=== PATIENT | male | born 1990 | race Caucasian/White ===

== ENCOUNTER 2018-04-23 10:14 | Emergency (ER) | payer MEDICAID ==
[~2018-04-23] VITALS: Ht 165.1 cm; Wt 73.0 kg
[2018-04-23] MEDS ORDERED: SODIUM CHLORIDE 0.9% 1,000 ML IV ONE (10:45)
[2018-04-23] MEDS ORDERED: MORPHINE SULFATE 2 MG/ML CPJ (NOT FOR IM USE) IV ONE (10:45)
[2018-04-23] MEDS ORDERED: ONDANSETRON HCL 4MG/2ML VIAL IV ONE (10:45)
[2018-04-23 10:50] LABS: HEMATOCRIT. 44.2 % (42.0-52.0); HEMOGLOBIN. 14.9 g/dL (14.0-18.0); MEAN CORPUSCULAR HEMOGLOBIN 27.8 pg (28.0-32.0); MEAN CORPUSCULAR VOLUME 82.7 fL (80.0-94.0); MEAN PLATELET VOLUME 7.6 fl (7.4-10.4); PLATELET 191 x1000/uL (130-400); RED BLOOD CELL COUNT 5.35 mill/uL (4.7-6.1); RED CELL DISTRIBUTION WIDTH 13.2 % (11.6-14.6)
[2018-04-23 10:56] LABS: CHLORIDE 103 mEq/L (98-107); PROTHROMBIN TIME 10.7 sec (9.4-11.6)
[2018-04-23 11:28] LABS: PLATELET ESTIMATE NORMAL
[2018-04-23 12:57] LABS: CLARITY URINE CLEAR (CLEAR); COLOR URINE YELLOW (YELLOW); KETONES URINE NEGATIVE (NEGATIVE); LEUKOCYTE ESTERASE URINE NEGATIVE (NEGATIVE); NITRITE URINE NEGATIVE (NEGATIVE); OCCULT BLOOD URINE NEGATIVE (NEGATIVE); PH URINE >=9.0 (4.5-8.0); PROTEIN URINE NEGATIVE (NEGATIVE); SPECIFIC GRAVITY URINE 1.018 (1.005-1.030)
[2018-04-23 13:06] LABS: *AMPHETAMINES SCREEN URINE NEGATIVE (NEGATIVE); *BARBITURATES SCREEN URINE NEGATIVE (NEGATIVE); *BENZODIAZEPINES SCREEN URINE NEGATIVE (NEGATIVE); *COCAINE SCREEN URINE NEGATIVE (NEGATIVE); METHADONE URINE SCREEN NEGATIVE (NEGATIVE); OPIATES URINE SCREEN NEGATIVE (NEGATIVE)
[2018-04-23 13:07] LABS: CANNABINOID URINE SCREEN PRESUMTIVE POSITIVE (NEGATIVE); PHENCYCLIDINE URINE SCREEN NEGATIVE (NEGATIVE)
[2018-04-23 16:45] VITALS: BP 122/70
== END 2018-04-23 16:50 | disposition home or self-care (01) ==
LOC: ER 10:14
DX: S01.511A Laceration without foreign body of lip, initial encounter (principal); M54.9 Dorsalgia, unspecified; R51 Headache; D72.829 Elevated white blood cell count, unspecified; R73.9 Hyperglycemia, unspecified; E86.0 Dehydration; D72.810 Lymphocytopenia; D71 Functional disorders of polymorphonuclear neutrophils; R79.1 Abnormal coagulation profile; F12.10 Cannabis abuse, uncomplicated; Y08.89XA Assault by other specified means, initial encounter; Y93.89 Activity, other specified; Y92.89 Other specified places as the place of occurrence of the external cause; Y99.8 Other external cause status
CPT/HCPCS: 36415; 70450; 70486; 71045; 72070; 72100; 80053; 80305; 81003; 83036; 83880; 84484; 85025; 85610; 93005; 96361; 96374; 96375; 99285; J2270; J2405; J7030; Z7610

== ENCOUNTER 2018-05-22 16:37 | Emergency (ER) | payer MEDICAID ==
[~2018-05-22] VITALS: Ht 177.8 cm; Wt 91.0 kg
[2018-05-22 16:38] VITALS: BP 129/82
== END 2018-05-22 18:41 | disposition left against medical advice (07) ==
LOC: ER 16:37
DX: Z04.8 Encounter for examination and observation for other specified reasons (principal); Z53.21 Procedure and treatment not carried out due to patient leaving prior to being seen by health care provider

== ENCOUNTER 2021-01-04 11:22 | Emergency (ER) | payer BC, MEDICAID ==
[~2021-01-04] VITALS: Ht 162.6 cm; Wt 73.0 kg
[2021-01-04] MEDS ORDERED: KETOROLAC 30MG/ML VIAL IV STA (11:50)
[2021-01-04] MEDS ORDERED: SODIUM CHLORIDE 0.9% 1,000 ML IV ONE (12:00)
[2021-01-04 12:02] LABS: HEMATOCRIT. 46.8 % (42.0-52.0); HEMOGLOBIN. 15.8 g/dL (14.0-18.0); MEAN CORPUSCULAR HEMOGLOBIN 27.8 pg (28.0-32.0); MEAN CORPUSCULAR VOLUME 82.4 fL (80.0-94.0); MEAN PLATELET VOLUME 7.8 fl (7.4-10.4); PLATELET 231 x1000/uL (130-400); RED BLOOD CELL COUNT 5.68 mill/uL (4.7-6.1); RED CELL DISTRIBUTION WIDTH 14.3 % (11.6-14.6)
[2021-01-04 12:11] LABS: CHLORIDE 105 mEq/L (98-107)
[2021-01-04 12:52] LABS: PLATELET ESTIMATE NORMAL
[2021-01-04] MEDS ORDERED: AMOXICILLIN/POTASSIUM CLAVULANATE 875/125MG TAB PO ONE (13:15)
[2021-01-04] MEDS ORDERED: AMOX-424 MT (14:07)
[2021-01-04] MEDS ORDERED: IBUP-2029 MT (14:09)
[2021-01-04 14:20] VITALS: BP 104/63
== END 2021-01-04 14:34 | disposition home or self-care (01) ==
LOC: ER 12:17
DX: S02.85XA Fracture of orbit, unspecified, initial encounter for closed fracture (principal); S00.12XA Contusion of left eyelid and periocular area, initial encounter; F17.290 Nicotine dependence, other tobacco product, uncomplicated; Y04.8XXA Assault by other bodily force, initial encounter; Y93.39 Activity, other involving climbing, rappelling and jumping off; Y92.098 Other place in other non-institutional residence as the place of occurrence of the external cause; Y99.8 Other external cause status
CPT/HCPCS: 36415; 70450; 70486; 80053; 85025; 93005; 96361; 96374; 99285; J1885; J7030

== ENCOUNTER 2021-01-17 08:25 | Emergency (ER) | payer BC, MEDICAID ==
[~2021-01-17] VITALS: Ht 162.6 cm; Wt 73.0 kg
[~2021-01-17 08:25] MED LIST: AMOX-424 MT; IBUP-2029 MT
[2021-01-17] MEDS ORDERED: KETOROLAC 30MG/ML VIAL IV STA (08:56)
[2021-01-17] MEDS ORDERED: SODIUM CHLORIDE 0.9% 1,000 ML IV ONE (09:00)
[2021-01-17 09:07] LABS: BASOPHILS % 0.8 % (0.0-2.0); HEMATOCRIT. 45.9 % (42.0-52.0); HEMOGLOBIN. 15.5 g/dL (14.0-18.0); LYMPHOCYTES % 12.1 % (20.0-50.0); MEAN CORPUSCULAR HEMOGLOBIN 28.3 pg (28.0-32.0); MEAN CORPUSCULAR VOLUME 83.8 fL (80.0-94.0); MEAN PLATELET VOLUME 7.6 fl (7.4-10.4); MONOCYTES % 8.1 % (2.0-8.0); PLATELET 230 x1000/uL (130-400); RED BLOOD CELL COUNT 5.47 mill/uL (4.7-6.1); RED CELL DISTRIBUTION WIDTH 14.5 % (11.6-14.6)
[2021-01-17 09:12] LABS: CHLORIDE 108 mEq/L (98-107)
[2021-01-17 09:13] LABS: PROTHROMBIN TIME 10.5 sec (9.6-11.0)
[2021-01-17 09:54] LABS: CLARITY URINE CLEAR (CLEAR); COLOR URINE YELLOW (YELLOW); KETONES URINE NEGATIVE (NEGATIVE); LEUKOCYTE ESTERASE URINE NEGATIVE (NEGATIVE); NITRITE URINE NEGATIVE (NEGATIVE); OCCULT BLOOD URINE NEGATIVE (NEGATIVE); PH URINE 7.5 (4.5-8.0); PROTEIN URINE NEGATIVE (NEGATIVE); SPECIFIC GRAVITY URINE 1.021 (1.005-1.030); UROBILINOGEN URINE 0.2 E.U./dL (0.2-1.0)
[2021-01-17] MEDS ORDERED: CYCL5TAB MT (10:26)
[2021-01-17] MEDS ORDERED: NAPR-681 MT (10:26)
[2021-01-17] MEDS ORDERED: CYCLOBENZAPRINE 10MG TABLET PO ONE (10:30)
[2021-01-17 10:40] VITALS: BP 114/74
== END 2021-01-17 10:41 | disposition home or self-care (01) ==
LOC: ER 08:25
DX: M54.9 Dorsalgia, unspecified (principal)
CPT/HCPCS: 36415; 80053; 81003; 85025; 85610; 96374; 99283; J1885; J7030; Z7610

== ENCOUNTER 2021-10-16 21:39 | Emergency (ER) | payer SELFPAY ==
[~2021-10-16] VITALS: Ht 167.6 cm; Wt 62.0 kg
[~2021-10-16 21:39] MED LIST changes: +CYCL5TAB MT; +NAPR-681 MT
[2021-10-16] MEDS ORDERED: KETOROLAC 30MG/ML VIAL IV STA (23:09)
[2021-10-16] MEDS ORDERED: ONDANSETRON HCL 4MG/2ML INJ IV STA (23:09)
[2021-10-16] MEDS ORDERED: SODIUM CHLORIDE 0.9% 1,000 ML IV ONE (23:15)
[2021-10-16 23:43] LABS: CLARITY URINE CLEAR (CLEAR); COLOR URINE YELLOW (YELLOW); KETONES URINE NEGATIVE (NEGATIVE); LEUKOCYTE ESTERASE URINE NEGATIVE (NEGATIVE); NITRITE URINE NEGATIVE (NEGATIVE); OCCULT BLOOD URINE NEGATIVE (NEGATIVE); PH URINE 6.5 (4.5-8.0); PROTEIN URINE NEGATIVE (NEGATIVE); SPECIFIC GRAVITY URINE 1.015 (1.005-1.030); UROBILINOGEN URINE 0.2 E.U./dL (0.2-1.0)
[2021-10-16 23:44] LABS: BASOPHILS % 0.5 % (0.0-2.0); EOSINOPHILS % 1.6 % (0.0-5.0); HEMATOCRIT. 41.3 % (42.0-52.0); HEMOGLOBIN. 13.8 g/dL (14.0-18.0); MEAN CORPUSCULAR HEMOGLOBIN 27.8 pg (28.0-32.0); MEAN CORPUSCULAR VOLUME 83.1 fL (80.0-94.0); MEAN PLATELET VOLUME 8.1 fl (7.4-10.4); MONOCYTES % 8.6 % (2.0-8.0); NEUTROPHILS % 78.3 % (40.0-76.0); PLATELET 224 x1000/uL (130-400); RED BLOOD CELL COUNT 4.97 mill/uL (4.7-6.1); RED CELL DISTRIBUTION WIDTH 13.7 % (11.6-14.6)
[2021-10-16 23:49] LABS: CHLORIDE 107 mEq/L (98-107)
[2021-10-17 00:05] LABS: *AMPHETAMINES SCREEN URINE PRESUMTIVE POSITIVE (NEGATIVE); *BARBITURATES SCREEN URINE NEGATIVE (NEGATIVE); *BENZODIAZEPINES SCREEN URINE NEGATIVE (NEGATIVE); *COCAINE SCREEN URINE NEGATIVE (NEGATIVE); CANNABINOID URINE SCREEN PRESUMTIVE POSITIVE (NEGATIVE); METHADONE URINE SCREEN NEGATIVE (NEGATIVE); OPIATES URINE SCREEN NEGATIVE (NEGATIVE)
[2021-10-17 00:06] LABS: PHENCYCLIDINE URINE SCREEN NEGATIVE (NEGATIVE)
[2021-10-17] MEDS ORDERED: POLYETHYLENE GLYCOL 3350 (17GM) 1 DOSE PACK PO ONE (01:45)
[2021-10-17] MEDS ORDERED: DICYCLOMINE HCL 10MG CAPSULE PO ONE (01:45)
[2021-10-17] MEDS ORDERED: IBUP-2029 MT (01:47)
[2021-10-17] MEDS ORDERED: POLY119P2 MT (01:47)
[2021-10-17] MEDS ORDERED: DICY10CA88 MT (01:47)
[2021-10-17 02:10] VITALS: BP 154/87
== END 2021-10-17 02:19 | disposition home or self-care (01) ==
LOC: ER 21:39
DX: K80.20 Calculus of gallbladder without cholecystitis without obstruction (principal); K59.00 Constipation, unspecified; I10 Essential (primary) hypertension; F12.10 Cannabis abuse, uncomplicated; F15.10 Other stimulant abuse, uncomplicated; F17.210 Nicotine dependence, cigarettes, uncomplicated; Z71.6 Tobacco abuse counseling
CPT/HCPCS: 36415; 74176; 76705; 80053; 80305; 81003; 83690; 85025; 93005; 96361; 96374; 96375; 99285; J1885; J2405; J7030

== ENCOUNTER 2022-11-01 16:07 | Emergency (ER) | payer OTHER ==
[~2022-11-01] VITALS: Ht 165.1 cm; Wt 75.0 kg
[~2022-11-01 16:07] MED LIST changes: +DICY10CA88 MT; +POLY119P2 MT
[2022-11-01 16:35] VITALS: BP 118/69
== END 2022-11-01 23:34 | disposition left against medical advice (07) ==
LOC: ER 16:07
DX: Z53.21 Procedure and treatment not carried out due to patient leaving prior to being seen by health care provider (principal)